=== PATIENT | female | born 1970 | race Caucasian/White ===

== ENCOUNTER → 2017-02-18 | Outpatient (CLI) | payer BC ==
[~2017-02-18] MED LIST: NORCO 325 MG-51 TAB PO
== END ==
LOC: COL.RAD 02-15 09:00
DX: Z13.6 Encounter for screening for cardiovascular disorders (principal); Z82.49 Family history of ischemic heart disease and other diseases of the circulatory system

== ENCOUNTER → 2018-10-05 | Outpatient (CLI) | payer BC | LOC: MC.RAD 15:18 | DX: Z12.31 Encounter for screening mammogram for malignant neoplasm of breast (principal) ==

== ENCOUNTER → 2021-10-06 | Outpatient (CLI) | payer BC | LOC: MC.RAD 10:30 | DX: Z12.31 Encounter for screening mammogram for malignant neoplasm of breast (principal) ==

== ENCOUNTER → 2023-01-06 | Outpatient (CLI) | payer OTHER ==
[~2023-01-06] MED LIST changes: +DEXILANT60 MG PO; +PRINIVIL20 MG PO; +SYNTHROID0.075 MG/T PO
== END ==
LOC: MC.RAD 07:38
DX: Z12.31 Encounter for screening mammogram for malignant neoplasm of breast (principal)

== ENCOUNTER → 2023-11-29 | Outpatient (CLI) | payer OTHER ==
[~2023-11-29] MED LIST changes: +NS IV ONE; +SINCALIDE IV ONE
== END ==
LOC: COL.RAD 06:35
DX: R10.13 Epigastric pain (principal); R11.0 Nausea
CPT/HCPCS: A9537-JZ; J2805